=== PATIENT | male | born 1990 | race American Indian/Alaskan Native ===

== ENCOUNTER 2020-10-09 07:52 | Emergency (ER) | payer OTHER ==
[2020-10-09 08:56] VITALS: BP 117/81
[2020-10-09] MEDS ORDERED: ALBUTEROL 2.5 MG/3 ML NEBU IH ONE (11:19)
[2020-10-09] MEDS ORDERED: IPRATROPIUM 0.02% NEBU 2.5 ML IH ONE (11:19)
[2020-10-09] MEDS ORDERED: methylPREDNISolone Sod Succinate 125 MG/2 ML INJ IV ONE (11:19)
[2020-10-09] MEDS ORDERED: MAGNESIUM SULFATE 2 GM/50 ML BAG IV ONE (11:19)
--- NOTE | 2020-10-09 11:21 | Emergency Department Report ---
ED Asthma HPI - General Chief Complaint: Adult Asthma Stated Complaint: ASTHMA Time Seen by Provider: 10/09/20 11:19 Source: patient Mode of arrival: Ambulatory Limitations: No Limitations - History of Present Illness Initial Comments: 29-year-old male with known history of asthma presents to the ER today with complaint of asthma flareup. He states that his symptoms started last weekend. He states that he has been having a productive cough with chest tightness, wheezing and sharp pain underneath his right and left ribs especially when he coughs. He also reports rhinorrhea, nasal congestion and sneezing. He denies any apparent chills or fever. He states that he has been using his albuterol inhaler every hour as well as using his albuterol nebulizer every 4 hours without much relief of his symptoms. He denies any ill contacts, recent travel or recent antibiotic use. He states that he has been admitted for his asthma before but the last time was 10 or 11 months ago when he was living in [facility]. Patient states that he has not received any of the Covid vaccines. Since he has been sick he has not taken a Covid test. He denies tobacco use and he does not live with anyone who smokes. He denies any past history of pneumonia. He states that he has never been intubated for his asthma before in the past. MD Complaint: "asthma attack" -: days(s) (5) - Related Data Previous Rx's Medication Instructions Recorded Last Taken Type ALBUTEROL NEB's [Proventil 0.083% 2.5 mg IH QID PRN #30 vial 10/09/20 Unknown Rx NEBS] Albuterol Mdi (or & Nicu Only) 2 puff IH QID PRN #8.5 gram 10/09/20 Unknown Rx [ProAir HFA Inhaler] Cetirizine HCl [Zyrtec 10mg tab] 10 mg PO DAILY #30 tablet 10/09/20 Unknown Rx Fluticasone [Flonase] 2 spray NS QDAY #1 bottle 10/09/20 Unknown Rx predniSONE [Deltasone] 50 mg PO QDAY #5 tab 10/09/20 Unknown Rx Allergies Allergy/AdvReac Type Severity Reaction Status Date / Time No Known Allergies Allergy Unverified 10/09/20 08:56 ED Review of Systems ROS: Stated complaint: ASTHMA Other details as noted in HPI Comment: All other systems reviewed and negative Constitutional: denies: chills, fever Eyes: denies: eye pain, eye discharge, vision change ENT: congestion, other (Rhinorrhea). denies: ear pain, throat pain, dental pain, hearing loss, epistaxis Respiratory: cough, shortness of breath, wheezing Cardiovascular: chest pain (Sharp pain under her ribs when he coughs). denies: palpitations Gastrointestinal: denies: abdominal pain, nausea, vomiting, diarrhea, constipation, hematemesis, melena, hematochezia Genitourinary: denies: urgency, dysuria, frequency, hematuria, discharge, testicular pain, testicular mass Musculoskeletal: denies: back pain, joint swelling, arthralgia Skin: denies: rash, lesions, change in color, change in hair/nails, pruritus Neurological: denies: headache, weakness, numbness, paresthesias, confusion, abnormal gait, vertigo Psychiatric: denies: anxiety, depression, auditory hallucinations, visual hallucinations, homicidal thoughts, suicidal thoughts Hematological/Lymphatic: denies: easy bleeding, easy bruising ED Past Medical Hx - Past Medical History Previous Medical History?: Yes Hx Asthma: Yes - Surgical History Past Surgical History?: No - Social History Smoking Status: Never Smoker Substance Use Type: Alcohol - Medications Home Medications: Home Medications Medication Instructions Recorded Confirmed Last Taken Type ALBUTEROL NEB's [Proventil 0.083% 2.5 mg IH QID PRN #30 vial 10/09/20 Unknown Rx NEBS] Albuterol Mdi (or & Nicu Only) 2 puff IH QID PRN #8.5 gram 10/09/20 Unknown Rx [ProAir HFA Inhaler] Cetirizine HCl [Zyrtec 10mg tab] 10 mg PO DAILY #30 tablet 10/09/20 Unknown Rx Fluticasone [Flonase] 2 spray NS QDAY #1 bottle 10/09/20 Unknown Rx predniSONE [Deltasone] 50 mg PO QDAY #5 tab 10/09/20 Unknown Rx ED Physical Exam - General Limitations: No Limitations General appearance: alert, in no apparent distress - Head Head exam: Present: atraumatic, normocephalic, normal inspection - Eye Eye exam: Present: normal appearance, PERRL, EOMI Pupils: Present: normal accommodation - ENT ENT exam: Present: normal exam, mucous membranes moist, TM's normal bilaterally - Neck Neck exam: Present: normal inspection, full ROM - Respiratory Respiratory exam: Present: wheezes (Diffuse inspiratory and expiratory wheezing noted). Absent: respiratory distress, rales, rhonchi, stridor, chest wall tenderness - Cardiovascular Cardiovascular Exam: Present: regular rate, normal rhythm, normal heart sounds - Neurological Exam Neurological exam: Present: alert, oriented X3, CN II-XII intact, normal gait - Psychiatric Psychiatric exam: Present: normal affect, normal mood - Skin Skin exam: Present: intact ED Course Vital Signs 10/09/20 10/09/20 08:52 15:07 Temperature 98.3 F Pulse Rate 95 H Respiratory 20 Rate Respiratory 20 Rate [Anterior Bilateral Throughout] Respiratory 23 Rate [Posterior Bilateral Throughout] Blood Pressure 117/81 O2 Sat by Pulse 100 Oximetry ED Medical Decision Making - Radiology Data Radiology results: report reviewed Patient: ADRIANNA CALIXTO MR#: [id number] : 1990 Acct:[id number] Age/Sex: 29 / M ADM Date: 10/09/20 Loc: ED Attending Dr: Ordering Physician: ROCKY MOCTEZUMA Date of Service: 10/09/20 Procedure(s): XR chest routine 2V Accession Number(s): [id number] cc: ROCKY MOCTEZUMA Fluoro Time In Minutes: CHEST 2 VIEWS INDICATION / CLINICAL INFORMATION: Cough, sharp chest pain. COMPARISON: None available. FINDINGS: SUPPORT DEVICES: None. HEART / MEDIASTINUM: No significant abnormality. LUNGS / PLEURA: No significant pulmonary abnormality. No significant pleural effusion. No pneumothorax. ADDITIONAL FINDINGS: No significant additional findings. IMPRESSION: 1. No acute abnormality of the chest. Signer Name: Harsh Ridley MD Signed: 10/09/2020 11:41 AM Workstation Name: [id number] Transcribed By: [place] Dictated By: Harsh Ridley MD Electronically Authenticated By: Harsh Ridley MD Signed Date/Time: 10/09/20 1141 DD/ 1140 TD/TT: - Medical Decision Making 1430: Patient currently receiving nebulizer treatment, but he reports feeling better. He already received IV Solu-Medrol and mag. Chest x-ray shows nothing acute. Repeat chest exam shows much improvement of his wheezing with good air m ovement. Patient currently does not appear to be in any respiratory distress. Will ambulate patient after he completes the nebulizer treatment to evaluate his oxygen. 1502: At rest patient O2 sat is between 97 to 100% on room air. Patient was ambulated in the ED, on room air, his O2 sat dropped to about 94% but he had no complaints of shortness of breath and he did not appear to be in any respiratory distress. Patient states that he still feels better than when he first came in. Patient currently is not toxic or ill-appearing. He appears hydrated. He is mentally stable and neurologically intact with a normal gait. At this time I do not see any indication for additional work-up or admitting him to the hospital. I did discuss case patient current condition with Dr Calderon, he is in agreement that patient seems to be stable enough for discharge. Patient will be discharged home with instructions to continue his albuterol nebulizer treatment every 4 hours, he will also be sent home on steroids and antihistamine and recommend close follow-up with his primary care doctor. Patient understands that if his symptoms worsens in any way to return to the ER. Critical care attestation.: If time is entered above; I have spent that time in minutes in the direct care of this critically ill patient, excluding procedure time. ED Disposition Clinical Impression: Asthma exacerbation, URI (upper respiratory infection) Disposition: DC-01 TO HOME OR SELFCARE Is pt being admited?: No Does the pt Need Aspirin: No Condition: Stable Instructions: Asthma, Adult Additional Instructions: I recommend that you continue using your albuterol inhaler and also your albuterol nebulizer every 4 hours as needed to help with shortness of breath wheezing or chest tightness. I do recommend that she get an outpatient COVID-19 test. Recommend that you check your temperatures to see if you develop any fever, if you do take Tylenol and ibuprofen as needed for fever. Take the prednisone as prescribed. Take the Zyrtec as prescribed. You can take Mucinex or Robitussin from [id number] to help with any coughing. Follow-up closely with primary care doctor. Return to the ER if your symptoms changes or worsens in any way. Prescriptions: predniSONE [Deltasone] 50 mg PO QDAY #5 tab Fluticasone [Flonase] 2 spray NS QDAY #1 bottle Albuterol Mdi (or & Nicu Only) [ProAir HFA Inhaler] 2 puff IH QID PRN #8.5 gram PRN Reason: Shortness Of Breath ALBUTEROL NEB's [Proventil 0.083% NEBS] 2.5 mg IH QID PRN #30 vial PRN Reason: Wheezing Cetirizine HCl [Zyrtec 10mg tab] 10 mg PO DAILY #30 tablet Referrals: BIJAN CELESTIN MD [Primary Care Provider] - 3-5 Days Forms: Work/School Release Form(ED) Time of Disposition: 15:17
--- NOTE | 2020-10-09 11:45 | XRay Report ---
CHEST 2 VIEWS INDICATION / CLINICAL INFORMATION: Cough, sharp chest pain. COMPARISON: None available. FINDINGS: SUPPORT DEVICES: None. HEART / MEDIASTINUM: No significant abnormality. LUNGS / PLEURA: No significant pulmonary abnormality. No significant pleural effusion. No pneumothora x. ADDITIONAL FINDINGS: No significant additional findings. IMPRESSION: 1. No acute abnormality of the chest. Signer Name: Harsh Ridley MD Signed: 10/09/2020 11:41 AM Workstation Name: [id number]
== END 2020-10-09 15:42 | disposition home or self-care (01) ==
LOC: ED 07:52
DX: J45.901 Unspecified asthma with (acute) exacerbation (principal); J06.9 Acute upper respiratory infection, unspecified; Z79.899 Other long term (current) drug therapy
CPT/HCPCS: 71046; 94644; 96365; 96375; 99283; J2930; J3475